=== PATIENT | female | born 1985 | race African-American/Black ===

== ENCOUNTER → 2020-07-04 07:48 | Outpatient (BNVA) | payer OTHER, SELFPAY | PROVIDERS: PCP Nurse Practitioner Gerontology; Referring Provider Nurse Practitioner Gerontology; Visit Provider Surgery | DX: Z76.89 Persons encountering health services in other specified circumstances (principal) ==

== ENCOUNTER 2020-07-22 10:03 | Outpatient (REF) | payer OTHER, SELFPAY ==
--- NOTE | 2020-07-22 10:38 | ECG_ITS ---
Test Reason : CP Blood Pressure : / mmHG Vent. Rate : 095 BPM Atrial Rate : 095 BPM P-R Int : 104 ms QRS Dur : 086 ms QT Int : 366 ms P-R-T Axes : 058 032 002 degrees QTc Int : 459 ms Sinus rhythm with short VT Otherwise normal ECG No previous ECGs available Referred By: Hugo Aguirre Electronically Signed By:EDMAR SEN MD
[2020-07-22 11:40] LABS: Eosinophils Percent Auto 0.7 % (0-4); Imm Gran Abs Auto 0.01 X10*3/uL (0.00-0.03); Imm Gran Pct Auto 0.2 % (0.0-0.4); Lymphocytes Absolute Auto 1.5 X10*3/uL (1.2-4.9); Lymphocytes Percent Auto 34.3 % (20-40); MANUAL DIFF FLAG NO; Mean Corpuscular Hemoglobin 27.8 pg (27.0-33.0); Mean Corpuscular Volume 88.4 fL (80-98); Monocytes Absolute Auto 0.3 X10*3/uL (0.1-1.2); Monocytes Percent Auto 7.5 % (2-11); Neutrophils Absolute Auto 2.5 X10*3/uL (2.0-8.3); Neutrophils Percent Auto 57.3 % (45-73); Platelet Count 235 X10*3/uL (160-400); Red Cell Distribution Width 13.4 % (11.0-16.0); White Blood Count 4.3 X10*3/uL (4.8-10.8)
[2020-07-22 11:58] LABS: Albumin Level 4.1 g/dL (3.5-5.0); Alkaline Phosphatase 60 U/L (39-117); Anion Gap 13 (12-20); Bilirubin Total 0.4 mg/dL (0.0-1.0); Blood Urea Nitrogen 13 mg/dL (9-16); C Reactive Protein 0.41 mg/dL (< or = 0.50); Carbon Dioxide 24 mmol/L (22-29); Chloride 105 mmol/L (96-108); Cholesterol 119 mg/dL; Estimated Glomerular Filt Rate > 60; Glucose Random 119 mg/dL (60-115); HDL Cholesterol 60 mg/dL; LDL Cholesterol Calculated 50 mg/dl; Potassium 4.3 mmol/l (3.3-5.1); Sodium 138 mmol/L (135-145); Triglycerides 48 mg/dL
[2020-07-22 12:03] LABS: Estimated Average Glucose 126 mg/dL
[2020-07-22 12:23] LABS: TSH reflex Free T4 1.27 mIU/mL (0.32-4.0); Vitamin D 25-OH Total 14.9 ng/mL (>30)
[2020-07-22 12:41] LABS: Folate 15.2 ng/mL (> or = 4.0); Vitamin B12 866 pg/mL (200-900)
[2020-07-23 13:43] LABS: Calcium (PTHI) 9.3 mg/dL (8.6-10.3); PTHI 32 pg/mL (14-64)
[2020-07-23 17:12] LABS: Insulin Level Total 18.9 uIU/mL
[2020-07-25 17:57] LABS: Zinc 74 mcg/dL (60-130)
[2020-07-27 10:22] LABS: Vitamin A 35 mcg/dL (38-98)
[2020-07-29 08:22] LABS: Vitamin B1 8 nmol/L (8-30)
[2020-08-01 14:56] LABS: Aspartate Amino Transferase 26 U/L (5-31); Ferritin 21 ng/mL (10-122)
[2020-08-01 14:57] LABS: Alanine Aminotransferase 16 U/L (0-31)
[2020-08-04 12:18] LABS: Red Blood Count 4.06 X10*6/uL (4.20-5.50)
[2020-08-04 12:19] LABS: Hematocrit 35.9 % (37-47); Hemoglobin 11.3 g/dl (12.0-16.0); Mean Corpuscular HGB Conc 31.5 g/dl (31.0-35.0)
[2020-08-04 12:20] LABS: Mean Platelet Volume 11.3 fL (9.4-12.3)
== END 2020-07-22 10:04 | disposition home or self-care (01) ==
LOC: HO.LAB 10:03
PROVIDERS: Visit Provider Surgery
DX: E66.01 Morbid (severe) obesity due to excess calories (principal)
CPT/HCPCS: 36415; 80053; 80061; 82306; 82607; 82728; 82746; 83036; 83525; 83970; 84425; 84443; 84590; 84630; 85025; 86140; 93005

== ENCOUNTER → 2020-07-29 09:04 | Outpatient (BNVA) | payer OTHER, SELFPAY | PROVIDERS: PCP Nurse Practitioner Gerontology; Visit Provider Surgery | DX: Z76.89 Persons encountering health services in other specified circumstances (principal) ==

== ENCOUNTER 2020-07-30 08:05 | Outpatient (REF) | payer OTHER, SELFPAY ==
--- NOTE | 2020-07-30 08:08 | XR_ITS ---
EXAMINATION: XR CHEST CLINICAL INFORMATION: Morbid obesity. COMPARISON: None TECHNIQUE: 2 views of the chest were obtained. FINDINGS: No significant abnormality is noted involving the heart, lungs, mediastinum, bony thorax or soft tissues. XR/XR chest 2V IMPRESSION: No acute cardiopulmonary process.
--- NOTE | 2020-07-30 08:08 | US_ITS ---
EXAMINATION: US COMPLETE ABDOMEN WITH LIVER ELASTOGRAPHY CLINICAL INFORMATION: Obesity COMPARISON: None. TECHNIQUE: Real-time imaging of the abdominal viscera. Noninvasive ultrasound liver fibrosis assessment is performed using Monika ElastPQ point quantification shear wave elastography (pSWE) with a 5 MHz transducer. Multiple elastography samples are obtained. FINDINGS: PANCREAS: Not well visualized due to bowel gas. ABDOMINAL AORTA: Not well visualized. INFERIOR VENA CAVA: Not well visualized. LIVER: Liver echotexture is slightly increased probably representing fatty infiltration. The liver is normal in contour.. No focal lesion or intrahepatic biliary duct dilatation. The liver is normal in size. The right lobe measures 16 cm in length. The left lobe measures 9.6 cm in length. The main portal vein is patent with appropriate hepatopedal flow Shear wave elastography provides a median stiffness of 2.2 m/s (reference: normal median stiffness is 0.81 - 1.22 m/s). The IQR/median stiffness to assess sampling precision is 0.4 (reference: optimal IQR/median stiffness is under 0.3). GALLBLADDER: Normal. The gallbladder is physiologically distended without evidence of stones, sludge, polyps, wall thickening or pericholecystic fluid. COMMON BILE DUCT: Normal in caliber measuring 0.5 cm in diameter. RIGHT KIDNEY: Normal. No hydronephrosis. No renal calculi or focal parenchymal lesions. The kidney measures 11.5 cm in maximum dimension. LEFT KIDNEY: Normal. No hydronephrosis. No renal calculi or focal parenchymal lesions. The kidney measures 10.7 cm in maximum dimension. SPLEEN: Normal. The spleen measures 9.4 cm in maximum dimension. FREE FLUID: None. US/US abdomen comp w elastography IMPRESSION: 1. Impression: Echogenic liver probably representing fatty infiltration. Limited visualization of the pancreas, aorta and IVC. 2. Elastography: Metavir score F3 to F4 suggestive of moderate to severe increased risk of developing liver fibrosis. Exam is slightly limited due to sampling error.
--- NOTE | 2020-07-30 08:08 | FL_ITS ---
EXAMINATION: XR GI SERIES CLINICAL INFORMATION: Morbid obesity due to excessive calories. COMPARISON: None. TECHNIQUE: Routine upper GI air contrast study was performed in upright and lying position. FINDINGS: Following oral administration of thick barium and effervescent granules, there is normal propagation bolus from the oral cavity through the pharynx and esophagus and into the stomach without any evidence of obstruction, narrowing or stricture. No laryngeal penetration or aspiration seen. No retention of barium in the valleculae. On placing patient supine and prone lying, there is good double contrast opacification of the entire stomach and the duodenum. Visualized esophageal, gastric and duodenal mucosa are normal. No gastroesophageal reflux or hiatal hernia seen. FLUOROSCOPY TIME: 1.3 minutes. DOSE AREA PRODUCT: 52.647 uGy-m2 (microgray-meter squared). FL/FL upper GI series IMPRESSION: Unremarkable upper GI air-contrast study.
[2020-07-31 15:03] LABS: H Pylori Breath Test NOT DETECTED (NOT DETECTED)
== END 2020-07-30 08:06 | disposition home or self-care (01) ==
LOC: HO.US 08:05
PROVIDERS: Visit Provider Surgery
DX: Z01.818 Encounter for other preprocedural examination (principal); E66.01 Morbid (severe) obesity due to excess calories; R79.89 Other specified abnormal findings of blood chemistry
CPT/HCPCS: 71046; 74240; 76705; 76981; 83013

== ENCOUNTER → 2020-08-06 08:24 | Outpatient (BNVA) | payer OTHER, SELFPAY | PROVIDERS: PCP Nurse Practitioner Gerontology; Referring Provider Nurse Practitioner Gerontology; Visit Provider Dietitian, Registered | DX: Z76.89 Persons encountering health services in other specified circumstances (principal) ==

== ENCOUNTER → 2020-08-23 08:14 | Outpatient (BNVA) | payer OTHER, SELFPAY | PROVIDERS: PCP Nurse Practitioner Gerontology; Visit Provider Surgery ==

== ENCOUNTER → 2020-09-23 08:29 | Outpatient (BNVA) | payer OTHER, SELFPAY | PROVIDERS: PCP Nurse Practitioner Gerontology; Visit Provider Surgery ==

== ENCOUNTER → 2020-10-16 12:51 | Outpatient (BNVA) | payer OTHER, SELFPAY | PROVIDERS: PCP Nurse Practitioner Gerontology; Visit Provider Surgery ==

== ENCOUNTER → 2020-12-11 15:48 | Outpatient (BNVA) | payer OTHER, SELFPAY | PROVIDERS: PCP Nurse Practitioner Gerontology; Visit Provider Physician Assistant ==

== ENCOUNTER → 2021-01-10 08:21 | Outpatient (BNVA) | payer OTHER, SELFPAY | PROVIDERS: PCP Nurse Practitioner Gerontology; Visit Provider Physician Assistant ==

== ENCOUNTER → 2021-02-07 15:30 | Outpatient (BNVA) | payer OTHER, SELFPAY | PROVIDERS: PCP Nurse Practitioner Gerontology; Referring Provider Nurse Practitioner Gerontology; Visit Provider Physician Assistant ==

== ENCOUNTER → 2021-03-05 08:14 | Outpatient (BNVA) | payer OTHER, SELFPAY | PROVIDERS: PCP Nurse Practitioner Gerontology; Visit Provider Physician Assistant ==

== ENCOUNTER → 2021-03-11 15:58 | Outpatient (BNVA) | payer OTHER, SELFPAY | PROVIDERS: PCP Nurse Practitioner Gerontology; Visit Provider Dietitian, Registered | DX: E66.01 Morbid (severe) obesity due to excess calories (principal); Z68.42 Body mass index [BMI] 45.0-49.9, adult | CPT/HCPCS: 97802 ==

== ENCOUNTER → 2021-04-11 13:14 | Outpatient (BNVA) | payer OTHER, SELFPAY | PROVIDERS: PCP Nurse Practitioner Gerontology; Visit Provider Dietitian, Registered | DX: E66.01 Morbid (severe) obesity due to excess calories (principal); Z68.42 Body mass index [BMI] 45.0-49.9, adult | CPT/HCPCS: 97803 ==

== ENCOUNTER 2021-04-25 16:05 | Outpatient (REF) | payer OTHER, SELFPAY ==
[2021-04-25 17:40] LABS: MANUAL DIFF FLAG NO
[2021-04-25 17:43] LABS: Basophils Percent Auto 0.3 % (0-2); Eosinophils Absolute Auto 0.1 X10*3/uL (0.0-0.4); Eosinophils Percent Auto 0.8 % (0-4); Hematocrit 33.6 % (37-47); Hemoglobin 10.8 g/dl (12.0-16.0); Imm Gran Abs Auto 0.03 X10*3/uL (0.00-0.03); Imm Gran Pct Auto 0.4 % (0.0-0.4); Lymphocytes Absolute Auto 2.2 X10*3/uL (1.2-4.9); Lymphocytes Percent Auto 29.5 % (20-40); Mean Corpuscular HGB Conc 32.1 g/dl (31.0-35.0); Mean Corpuscular Hemoglobin 29.4 pg (27.0-33.0); Mean Corpuscular Volume 91.6 fL (80-98); Mean Platelet Volume 11.1 fL (9.4-12.3); Monocytes Absolute Auto 0.7 X10*3/uL (0.1-1.2); Monocytes Percent Auto 8.9 % (2-11); Neutrophils Absolute Auto 4.4 X10*3/uL (2.0-8.3); Neutrophils Percent Auto 60.1 % (45-73); Platelet Count 232 X10*3/uL (160-400); Red Blood Count 3.67 X10*6/uL (4.20-5.50); Red Cell Distribution Width 13.4 % (11.0-16.0); White Blood Count 7.4 X10*3/uL (4.8-10.8)
== END 2021-04-25 16:06 | disposition home or self-care (01) ==
LOC: HO.LAB 16:05
PROVIDERS: PCP Nurse Practitioner Gerontology; Referring Provider Nurse Practitioner Gerontology; Visit Provider Physician Assistant
DX: E66.01 Morbid (severe) obesity due to excess calories (principal); D64.9 Anemia, unspecified; Z90.3 Acquired absence of stomach [part of]
CPT/HCPCS: 36415; 85025